=== PATIENT | male | born 2000 | race Caucasian/White ===

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

== ENCOUNTER 2021-03-30 22:25 | Emergency (ER) | payer SELFPAY ==
[~2021-03-30] VITALS: Ht 182.9 cm; Wt 106.0 kg
[~2021-03-30 22:25] MED LIST changes: +TAMSULOSIN0.4 MG PO; +TORADOL PO; +ZOFRAN8 MG PO
[2021-03-31 01:19] LABS: HEMATOCRIT 45.8 % (39.0-50.0); HEMOGLOBIN 15.6 g/dl (14.0-18.0); IMMATURE GRANULOCYTES 0.1 % (0.0-5.0); MEAN CELL VOLUME 85.8 fL CALC (80.0-100.0); MEAN CORPUSCULAR HGB 29.2 pG CALC (26.0-32.0); MEAN CORPUSCULAR HGB CONC 34.1 g/dL CAL (32.0-36.0); NEUT# 3.49 thou/uL (1.82-7.42); RED BLOOD COUNT 5.34 mill/uL (4.70-6.10); RED CELL DISTRI WIDTH 12.9 % (11.5-15.5)
[2021-03-31 01:28] LABS: URINE BILIRUBIN - DIPSTICK NEGATIVE (NEGATIVE); URINE BLOOD DIPSTICK NEGATIVE (NEGATIVE); URINE COLOR YELLOW; URINE GLUCOSE - DIPSTICK NEGATIVE (NEGATIVE); URINE KETONE NEGATIVE (NEGATIVE); URINE LEUK ESTERASE NEGATIVE (NEGATIVE); URINE PROTEIN - DIPSTICK NEGATIVE (NEG-TRACE); URINE SPECIFIC GRAVITY 1.025; URINE UROBILINOGEN - DIPSTICK 0.2 E.U./dL (0.2)
[2021-03-31 01:29] LABS: URINE NITRITE - DIPSTICK NEGATIVE (Negative)
[2021-03-31 01:42] LABS: ALBUMIN 4.1 g/dL (3.2-5.0); ALKALINE PHOSPHATASE 98 u/l (38-126); AMYLASE 70 u/l (30-110); ANION GAP 10 (6-22 (CALC)); BILIRUBIN, TOTAL 0.5 mg/dL (0.0-1.4); BUN 13 mg/dL (9-20); BUN/CREATININE RATIO 14 (12-20 (CALC)); CARBON DIOXIDE 29 mmol/l (22-30); CHLORIDE 105 mmol/l (95-108); CREATININE 0.9 mg/dL (0.7-1.3); GFR > 60 ML/MIN (>=60 (CALC)); GFR FOR AFR.AMER. > 60 ML/MIN (>=60 (CALC)); LIPASE 68 u/l (23-300); POTASSIUM 4.1 mmol/l (3.5-5.1); SGOT/AST 24 u/l (17-59); SODIUM 140 mmol/l (137-146); TOTAL PROTEIN 6.8 g/dL (6.3-8.2)
[2021-03-31 01:58] LABS: MYOGLOBIN 26 ng/mL (0 - 121)
[2021-03-31 04:35] VITALS: BP 132/62
== END 2021-03-31 03:52 | disposition home or self-care (01) | DRG 313 ==
LOC: ED 22:25
PROVIDERS: Emergency Medicine
DX: R07.9 Chest pain, unspecified (principal)
CPT/HCPCS: Q9967

== ENCOUNTER 2024-04-16 20:37 | Emergency (ER) | payer SELFPAY ==
[~2024-04-16] VITALS: Ht 182.9 cm; Wt 117.9 kg
[2024-04-16] MEDS ORDERED: FLUORESCEIN SODIUM 1 MG EA OU ONE (23:45)
[2024-04-16] MEDS ORDERED: TETRACAINE HCL 0.5 %/4 ML SOL OU ONE (23:45)
[2024-04-16] MEDS ORDERED: GENTAMICIN SULFATE (OPHTH) 5 ML BTL OD ONE (23:55)
[2024-04-17] MEDS ORDERED: GENTAMICIN0.3 % OD
[2024-04-17 00:20] VITALS: BP 131/87
== END 2024-04-17 00:20 | disposition home or self-care (01) | DRG 125 ==
LOC: ED 20:37
DX: S05.01XA Injury of conjunctiva and corneal abrasion without foreign body, right eye, initial encounter (principal); W44.8XXA Other foreign body entering into or through a natural orifice, initial encounter; Y99.0 Civilian activity done for income or pay